=== PATIENT | female | born 1935 | race Caucasian/White ===

== ENCOUNTER 2016-12-09 11:10 | Day surgery (SDC) | payer MEDICARE, BC ==
[2016-12-07 15:51] VITALS: BMI 27.1
[~2016-12-09 11:10] MED LIST: LACTATED RINGERS 1,000 ML IV SCH
[2016-12-09 11:36] VITALS: TEMP 98
[2016-12-09] MEDS ORDERED: LIDOCAINE 1% 20 ML VIAL (10MG/ML) FOR IV START INTRADERMA ONE (11:48)
[2016-12-09] MEDS ORDERED: PROPOFOL 10 MG/ML 20 ML VIAL IV ONE (12:16)
[2016-12-09] MEDS ORDERED: LIDOCAINE 1% INJ 10MG/ML (20 ML MDV) ONE (12:16)
[2016-12-09 13:03] VITALS: RESP 16
[2016-12-09 13:34] VITALS: BP 128/67; PULSE 77
--- NOTE | 2016-12-17 04:24 | P.PCN ---
Date of Procedure: 12/09/16 Procedure(s) Performed: Procedure: Esophagogastroduodenoscopy. Preoperative diagnosis: History of GI bleeding and pancreatic cancer. Postoperative diagnosis: 1. Small sliding hiatal hernia with no obvious esophagitis or complicated reflux disease. 2. Stomach appeared within normal limits with the exception of the of the distal antrum/pyloric channel. 3. Ulcerations and exudation starting in the distal antrum/pyloric channel and extending into the duodenal bulb and descending duodenum corresponding to the area of expansion of the duodenal stent with friability but no spontaneous bleeding. Preparation and sedation: Was provided by anesthesia. Brief clinical history: The patient is an 81 year old female who was treated for bowel obstruction secondary to pancreatic malignancy around January 2016. The patient had biliary and duodenal stents placed at the [facility] where she was hospitalized initially. She has received chemotherapy locally consisting of Gemzar and Abraxane. I saw her in July when she was hospitalized for nausea and not eating well. In October she had an upper endoscopy in [place] for GI bleeding and required transfusions. The bleeding originated in the duodenum as noted in the pictures she brought with her. This evaluation was requested to assess the status of her GI tract in anticipation of resuming her chemotherapy. Procedure: With the patient on her left lateral decubitus position and after informed consent and adequate sedation, I passed the Olympus GIF 160 Video upper endoscope through the cricopharyngeus down the esophagus. The esophagus appeared healthy. The endoscope was then pass through a small sliding hiatal hernia to the rest of the stomach. The proximal aspect of the duodenal stent was noted in the pyloric channel/distal antrum. There was ulcerations covered with wide exudates seen through the stent with no spontaneous bleeding. This also involved the duodenum bulb and descending duodenum and could be seen through the stent. When I passed the endoscope into the duodenum these areas started to show oozing of blood. There was no obstruction to the small bowel lumen. No biopsies were obtained. The patient tolerated the procedure well. Plan: The patient will F/U with you as planned. The ulcerations observed are likely related to pressure ulcerations in the area of expansion of the duodenal stent and mucositis. Unlikely related to her tumor. She is at risk of re- bleeding since these ulcers are not healed. She will see you in F/U as planned.
== END 2016-12-09 13:51 | disposition home or self-care (01) ==
LOC: ORWHC2ENDO 11:10
DX: K25.4 Chronic or unspecified gastric ulcer with hemorrhage (principal); C25.9 Malignant neoplasm of pancreas, unspecified; Z92.21 Personal history of antineoplastic chemotherapy; I10 Essential (primary) hypertension; K44.9 Diaphragmatic hernia without obstruction or gangrene; Z98.890 Other specified postprocedural states; F41.9 Anxiety disorder, unspecified; Z79.899 Other long term (current) drug therapy; Z79.891 Long term (current) use of opiate analgesic
CPT/HCPCS: 43235; J2001; J2704

== ENCOUNTER → 2017-03-03 | Outpatient (CLI) | payer MEDICARE, BC ==
[2017-03-03 09:33] LABS: Blood Urea Nitrogen 19 mg/dL (7-17); Non-African American GFR(MDRD) >60 (>60 ml/min/1.73 sqM)
--- NOTE | 2017-03-03 12:44 | CT ---
EXAMINATION TYPE: CT abdomen pelvis w con DATE OF EXAM: 03/03/2017 COMPARISON: NONE INDICATION: Pancreatic cancer DLP: 568.00 mGycm, Automated exposure control for dose reduction was used. CONTRAST: 100 ml mL of Omnipaque 300. Study performed with Oral Contrast TECHNIQUE: Axial images were obtained from above the diaphragm to the pubic rami in the axial plane a t 5 mm thick sections. Reconstructed images are reviewed on the computer in the coronal plane. FINDINGS: Limited CT sections are obtained the lung bases. There is a small area of pneumonitis within the ant erior right middle lobe lung base. This may be a change.. CT ABDOMEN: Liver: There is a stent within the common duct region. There is within the biliary tree. Moderate fat ty infiltration liver is present. Small amount of ascites adjacent to liver. Spleen: Normal Pancreas: Atrophic. The duct appears prominent. Head of the pancreas appears more normal. There is a stent within the stomach into the duodenum. Discrete pancreas mass is not identified. Adrenal glands: The adrenal glands are normal. Gallbladder: Partially decompressed Kidneys: No masses are evident. No hydronephrosis is present. Few small cortical renal cysts are pr esent on the left kidney. Delayed images were obtained through the kidneys, which remain unremarkabl e. Aorta: Vascular calcification is within the aorta. Inferior vena cava: Normal. CT PELVIS: Loops of bowel within the abdomen and pelvis are normal. Fecal debris is scattered through the co shantal. Diverticular changes are within the sigmoid colon. No acute diverticulitis. Appendix: Not identified Urinary bladder: Decompressed with limited evaluation. Genitourinary structures: Uterus appears normal. Adnexal regions are unremarkable. Osseous structures: No suspicious lytic or sclerotic lesions. Facet degenerative changes are present. IMPRESSIONS: 1. Dilated pancreatic duct with atrophic body and tail. Head of the pancreas is homogenous. Pancreat ic mass is not clearly identified. 2. Stents within the stomach and duodenum and common bile duct. 3. Pneumobilia 4. Diverticulosis within the sigmoid colon without acute diverticulitis. 5. New area of pneumonitis right middle lobe. Follow-up CT chest recommended.
== END | disposition home or self-care (01) ==
LOC: RADCTMAIN 08:52
PROVIDERS: ATTEND Internal Medicine Hematology & Oncology
DX: K86.89 Other specified diseases of pancreas (principal); K83.8 Other specified diseases of biliary tract; K57.30 Diverticulosis of large intestine without perforation or abscess without bleeding; J18.9 Pneumonia, unspecified organism; C25.0 Malignant neoplasm of head of pancreas
CPT/HCPCS: 82565; 84520; 74177; 36415; Q9967

== ENCOUNTER → 2017-03-30 | Outpatient (CLI) | payer MEDICARE, BC ==
--- NOTE | 2017-03-30 15:38 | US ---
EXAMINATION TYPE: US venous doppler duplex LE BI DATE OF EXAM: 03/30/2017 3:18 PM COMPARISON: NONE CLINICAL HISTORY: 81-year-old female R22.42, R22.41 SWELLING OF RT AND LT LOWER LIMB. Bilateral leg s welling SIDE PERFORMED: Bilateral TECHNIQUE: The lower extremity deep venous system is examined utilizing real time linear array sonog kisha with graded compression, doppler sonography and color-flow sonography. FINDINGS: VESSELS IMAGED: External Iliac Vein (EIV) Common Femoral Vein Deep Femoral Vein Greater Saphenous Vein * Femoral Vein Popliteal Vein Small Saphenous Vein * Proximal Calf Veins (* superficial vessels) Right Leg: Appears negative for DVT. Incidentally, there is some subcutaneous edema noted behind the knee. Left Leg: Appears negative for DVT, thrombus seen within superficial vessels left medial calf at pat ient's area of pain IMPRESSION: 1. No evidence for DVT within the bilateral lower extremities imaged from the groin to the upper calf . 2. However, exam is positive for thrombosis of a superficial vein along the medial left calf correspo nding to the site of patient's pain.
== END | disposition home or self-care (01) ==
LOC: RADUSWWP 14:35
PROVIDERS: ATTEND Internal Medicine Hematology & Oncology
DX: I82.812 Embolism and thrombosis of superficial veins of left lower extremity (principal); R22.41 Localized swelling, mass and lump, right lower limb
CPT/HCPCS: 93970

== ENCOUNTER → 2017-03-30 | Outpatient (CLI) | payer MEDICARE, BC ==
--- NOTE | 2017-03-30 14:30 | NM ---
EXAMINATION TYPE: NM hepatobiliary wo EF DATE OF EXAM: 03/30/2017 COMPARISON: Correlation CT 03/03/2017 HISTORY: 81-year-old female with pancreatic cancer, pain, evaluate for acute cholecystitis. TECHNIQUE: After the intravenous administration of 5.1 mCi Tc 99m Mebrofenin hepatobiliary scintigrap hy is performed. Immediate images post injection. FINDINGS: There is satisfactory uptake of tracer by the liver though asymmetrically decreased in the superior l eft hepatic lobe. There is excretion from the biliary system with accumulation in the expected region of the proximal duodenum with prominent reflux into the stomach. There is distal transit of tracer a s well but prominent small bowel tracer seen on the 2 1/2 and 4 hour images. Of note, there is a prom inent branching pattern to the excreted tracer in the superior left hepatic lobe with delayed clearan ce from the liver. Gallbladder is not visualized at 4 hours. IMPRESSION: 1. Nonvisualization of the gallbladder at 4 hours. Findings suggest cystic duct obstruction which cou ld be from acute cholecystitis. As the gallbladder was collapsed on the 03/03/2017 CT, consider ultras ound to assess the gallbladder's appearance. 2. Over the first hour, there is a greater degree of reflux into the stomach as compared to tracer wh ich progresses into the small bowel. This suggests a relative/partialobstruction within the duodenum. 3. Relative hypofunctioning of the superior left hepatic lobe with delayed clearance of tracer from i ts biliary radicles. This suggests a partial obstruction of the bile duct draining this segment.
== END | disposition home or self-care (01) ==
LOC: RADNMMAIN 08:51
PROVIDERS: ATTEND Internal Medicine Hematology & Oncology
DX: K21.9 Gastro-esophageal reflux disease without esophagitis (principal); K76.89 Other specified diseases of liver; C25.0 Malignant neoplasm of head of pancreas; R93.2 Abnormal findings on diagnostic imaging of liver and biliary tract
CPT/HCPCS: 78226; A9537